=== PATIENT | female | born 1960 | race Caucasian/White ===

== ENCOUNTER 2017-07-19 06:58 | Day surgery (SDC) | payer OTHER ==
[2017-07-19] MEDS ORDERED: MIDAZOLAM 2 MG/2 ML VIAL IVP ONE (08:01)
--- NOTE | 2017-07-19 08:01 | PDANEPAE ---
ANE History of Present Illness hysterscopy, morcellation, Novasure ANE Past Medical History - Cardiovascular History Hx Hypertension: No Hx Arrhythmias: No Hx Chest Pain: No Hx Coronary Artery / Peripheral Vascular Disease: No Hx CHF / Valvular Disease: No Hx Palpitations: No Cardiovascular History Comment: DVT 2013 CAUSED BY BCPs RLE - NO ANTICOAG TX - Pulmonary History Hx COPD: No Hx Asthma/Reactive Airway Disease: Yes Hx Recent Upper Respiratory Infection: No Hx Oxygen in Use at Home: No Hx Sleep Apnea: No Sleep Apnea Screening Result - Last Documented: Negative Pulmonary History Comment: EXERCISE INDUCED ALLERGIES & CATS - Neurologic History Hx Cerebrovascular Accident: No Hx Seizures: No Hx Dementia: No Neurologic History Comment: MIGRAINES ONCE MONTHLY - Endocrine History Hx Diabetes: No - Renal History Hx Renal Disorders: No - Liver History Hx Hepatic Disorders: No - Neurological & Psychiatric Hx Hx Neurological and Psychiatric Disorders: No - Cancer History Hx Cancer: No - Congenital Disorder History Hx Congenital Disorders: No - GI History Hx Gastrointestinal Disorders: No Gastrointestinal History Comment: CELIAC DISEASE - Other Health History Other Health History: LOW BLOOD IGA LEVELS. NEUROPATHIC ITCH - FOLLOWING REACTION TO OVIIDO WRAP FOR DVT R LEG. -RESIDUAL PATCH RLE - -GABAPENTIN RELIEVES SXS - Chronic Pain History Chronic Pain: Yes (FASCIITIS) - Surgical History Prior Surgeries: 2015 HYSTEROSCOPY-FIBROIDS. ACL REPAIR R ANE Review of Systems Review of systems is: negative Review of Systems: - Exercise capacity METS (RN): 4 METS ANE Patient History - Allergies Allergies/Adverse Reactions: No Known Allergies Allergy (Unverified 07/06/17 16:09) - Home Medications Home medications: home medication list seen and reviewed Home Medications: Gabapentin 07/06/17 [Last Taken 07/18/17 17:30] Ibuprofen 07/06/17 [Last Taken 07/05/17] Zyrtec 07/06/17 [Last Taken 07/17/17] - NPO status NPO Since - Liquids (Date): 07/19/17 NPO Since - Liquids (Time): 05:00 - Anes Hx Anes Hx: no prior problems - Smoking Hx Smoking Status: Former smoker - Family Anes Hx Family Anes Hx: none Family Hx Anesthesia Complications: NEG ANE Labs/Vital Signs - Vital Signs Height: 164.47 cm Weight: 78.925 kg ANE Physical Exam - Airway Neck exam: FROM Mallampati Score: Class 3 Mouth exam: normal dental/mouth exam - Pulmonary Pulmonary: no respiratory distress - Cardiovascular Cardiovascular: regular rate and rhythym - ASA Status ASA Status: II ANE Anesthesia Plan Total IV Anesthesia: Yes
[2017-07-19] MEDS ORDERED: LR 1,000 ML IV ONE (08:43)
[2017-07-19] MEDS ORDERED: LIDOCAINE 1% 2 ML INJ ID PRN (08:43)
[2017-07-19] MEDS ORDERED: ONDANSETRON 4 MG/2 ML VIAL ONE (08:45)
[2017-07-19] MEDS ORDERED: LIDOCAINE 2% 100 MG/5 ML SYR ONE (08:45)
[2017-07-19] MEDS ORDERED: fentaNYL 100 MCG/2 ML INJ ONE (08:45)
[2017-07-19] MEDS ORDERED: PROPOFOL 200 MG/20 ML VIAL ONE (08:45)
[2017-07-19] MEDS ORDERED: DEXAMETHASONE 4 MG/ML VIAL ONE (08:45)
--- NOTE | 2017-07-19 08:51 | PDHPUP ---
History & Physical Update H&P update statement: This history and physical update is based on an assessment of the patient which was completed after admission or registration (within 24 hours), but prior to the surgery/procedure.
[2017-07-19] MEDS ORDERED: MEPERIDINE 25 MG/ML SYR IVP PRN (09:21)
[2017-07-19] MEDS ORDERED: fentaNYL 100 MCG/2 ML INJ IVP PRN (09:21)
[2017-07-19] MEDS ORDERED: DEXAMETHASONE 4 MG/ML VIAL IVP PRN (09:21)
[2017-07-19] MEDS ORDERED: ONDANSETRON 4 MG/2 ML VIAL IVP PRN (09:21)
[2017-07-19] MEDS ORDERED: HYDROmorphONE/DILAUDID 1 MG/ML INJ IVP PRN (09:21)
[2017-07-19] MEDS ORDERED: ACETAMINOPHEN 500 MG TAB PO PRN (09:21)
[2017-07-19] MEDS ORDERED: HYDROCODONE/APAP 5/325 TAB PO PRN (09:21)
[2017-07-19] MEDS ORDERED: NALOXONE HCL 0.4 MG/ML INJ IVP PRN (09:21)
[2017-07-19] MEDS ORDERED: PROMETHAZINE HCL 25 MG/ML INJ IVP PRN (09:21)
[2017-07-19] MEDS ORDERED: OXYCODONE/APAP 5/325 TAB PO PRN (09:21)
--- NOTE | 2017-07-19 09:23 | POSTANESTH ---
Post Anesthetic Evaluation Cardiovascular Status: Normal, Stable, Similar to Pre-Op Cond Respiratory Status: Normal, Stable, Similar to Pre-op Cond. Level of Consciousness/Mental Status: Can Participate in Eval, Moderately Sleepy Pain Control: Adequate, Prn Tx Ordered Nausea/Vomiting Control: Adequate, Prn Tx Ordered Complications Possibly Related to Anesthesia: None Noted
[2017-07-19] MEDS ORDERED: KETOROLAC 30 MG/1 ML SDV ONE (09:33)
--- NOTE | 2017-07-19 09:50 | POSTOPPROG ---
Post Op Note Date of Operation: 07/19/17 Surgeon: Haven Devine Anesthesiologist: Dmitriy Quiroz Anesthesia: LMA Pre-op Diagnosis: DUB, fibroid Post-op Diagnosis: same Indication: persistent bleeding Procedure: H/S myomectomy , Novasure Findings: submucosal fibroid Inf/Abcess present in the surg proc area at time of surgery?: No EBL: Minimal
[2017-07-19 10:42] VITALS: TEMP 97.5; O2SAT 96
[2017-07-19 11:02] VITALS: BP 110/73; PULSE 65; RESP 14
--- NOTE | 2017-07-20 00:13 | GOP ---
[f rep st] OPERATIVE REPORT DATE OF OPERATION: 07/19/2017 SURGEON: Haven Devine MD ANESTHESIA: General with LMA. ANESTHESIOLOGIST: Dmitriy Quiroz MD PREOPERATIVE DIAGNOSIS: 1. Dysfunctional uterine bleeding. 2. Submucosal fibroids. 3. History of previous hysteroscopic myomectomy. POSTOPERATIVE DIAGNOSIS: 1. Dysfunctional uterine bleeding. 2. Submucosal fibroids. 3. History of previous hysteroscopic myomectomy. PROCEDURE PERFORMED: Hysteroscopic myomectomy with NovaSure endometrial ablation. FINDINGS: An anterior, fundal fibroid impinging into the endometrium, probably about 1.5 cm, and she has several others on the right lower uterine segment. Normal tubal ostia and normal cervix. ESTIMATED BLOOD LOSS: Minimal. DESCRIPTION OF PROCEDURE: With informed consent signed, patient was taken to the operating room, [facility] under general anesthesia, placed in a low dorsal lithotomy position, prepped and draped in usual fashion. Bladder previously emptied. A speculum placed in the vagina. Tenaculum placed on the ante rior lip of the cervix. Uterus was sounded to 8 cm. The cervix was dilated up to 9.5 mm. Hysterosc ope placed, using normal saline as a filling medium, and findings as noted above. The [facility] [employer] Neph ew Truclear hysteroscopic morcellator placed into the hysteroscope, and reciprocating blade used to r esect the submucosal fibroids. Once it was felt that they were completely removed, the hysteroscope removed and net fluid deficit was 90 cc. The NovaSure endometrial ablation device was placed into th e uterine cavity, depth was 6.5, width was 4.6, integrity test passed. Burn time was only about 20-3 0 seconds. Then, the NovaSure removed and patient placed in supine position, awakened in the operati ng room, taken to recovery room in stable condition. Tolerated the procedure well. INDICATIONS FOR PROCEDURE: Patient is a 56-year-old who has had heavy irregular menstrual cycles. S he has had a hysteroscopic myomectomy at [place] in 2014, and had improvement of periods and then was here as a patient in 2016, complaining of heavy periods. An ultrasound sonohysterogram done August of 2016 showed a submucosal filling defect, likely a fundal submucosal fibroid. The patient was offe red hysteroscopic resection and declined, and then continued to have problematic bleeding. Another u ltrasound was done in May 2017, and the fibroid was considered stable. The patient desires to go ahead with surgical removal again. COMPLICATIONS: None. /[id number]/MODL
== END 2017-07-19 15:41 | disposition home or self-care (01) ==
LOC: FSGY 06:58
PROVIDERS: ATTEND Obstetrics & Gynecology Gynecology
PROC: 0UB97ZZ Excision of Uterus, Via Natural or Artificial Opening (ICD-10-PCS; principal; 2017-07-19 08:30)
PROC: 0U5B8ZZ Destruction of Endometrium, Via Natural or Artificial Opening Endoscopic (ICD-10-PCS; principal; 2017-07-19 08:30)
DX: N93.8 Other specified abnormal uterine and vaginal bleeding (principal); D25.0 Submucous leiomyoma of uterus
CPT/HCPCS: 58145; 58563; C1782; J1100; J1885; J2001; J2250; J2405; J2704; J3010

== ENCOUNTER → 2018-01-27 | Outpatient (CLI) | payer BC | LOC: FIMAGING 14:46 | PROVIDERS: ATTEND Internal Medicine | DX: Z12.31 Encounter for screening mammogram for malignant neoplasm of breast (principal) ==

== ENCOUNTER → 2018-06-26 | Outpatient (CLI) | payer BC ==
[~2018-06-26] MED LIST: GADOBUTROL 10 ML VIAL IVP ONE
== END ==
LOC: FIMAGING 15:07
PROVIDERS: ATTEND Internal Medicine
DX: R22.2 Localized swelling, mass and lump, trunk (principal)
CPT/HCPCS: A9585

== ENCOUNTER 2019-01-17 15:06 | Emergency (ER) | payer BC ==
--- NOTE | 2019-01-17 15:08 | EDPHY ---
H & P Time Seen by Provider: 01/17/19 15:08 HPI/ROS: CHIEF COMPLAINT: Presyncope, fatigue HISTORY OF PRESENT ILLNESS: The patient presents the ED after an episode of presyncope that occurred while standing at work. The patient reportedly felt as if she was going to pass out experience transient disequilibrium. The patient has continued to have intermittent bouts confusion since the event. There is no history of unilateral weakness or numbness. The patient denies any speech difficulties. She has no prior history of stroke or TIA. She denies any headache, neck pain recent fall or cervical manipulation. The patient denies any changes to her regular medications. The patient does have a history of orthostatic hypotension but reports the symptoms today feel different. REVIEW OF SYSTEMS: A comprehensive 10 point review of systems is otherwise negative aside from elements mentioned in the history of present illness. Source: Patient Exam Limitations: No limitations - Medical/Surgical History Hx Diabetes: No - Family History Significant Family History: No pertinent family hx - Social History Smoking Status: Former smoker - Physical Exam Exam: General Appearance: Alert, no acute distress Eyes: Pupils equal and round no pallor or injection ENT, Mouth: Mucous membranes moist Respiratory: There are no retractions, lungs are clear to auscultation Cardiovascular: Regular rate and rhythm Gastrointestinal: Abdomen is soft and nontender, no masses, bowel sounds normal Neurological: A&O, normal motor function, normal sensory exam, normal cranial nerves Skin: Warm and dry, no rashes Musculoskeletal: Neck is supple nontender Extremities: symmetrical, full range of motion Constitutional: Initial Vital Signs Temperature (C) 36.5 C 01/17/19 15:11 Heart Rate 71 01/17/19 15:11 Respiratory Rate 16 01/17/19 15:11 Blood Pressure 133/93 H 01/17/19 15:11 O2 Sat (%) 97 01/17/19 15:11 O2 Delivery Mode Room Air Allergies/Adverse Reactions: No Known Allergies Allergy (Unverified 01/17/19 15:09) Home Medications: Medication Instructions Recorded Gabapentin 07/06/17 Ibuprofen 07/06/17 Zyrtec 07/06/17 Albuterol Sulfate 01/17/19 Prozac 10 MG (*) 01/17/19 Xanax 01/17/19 Medical Decision Making - Diagnostics EKG Interpretation: EKG: Complete interpretation has been separately [facility] the [facility]. Summary impression: Sinus rhythm, rate 69 ED Course/Re-evaluation: Patient presents to the ED with presyncope and fatigue. The patient arrives with stable vital signs. During in the interview the patient did seem to be quite fatigued with difficulty concentrating. She had no focal neurologic deficits noted on exam. The patient was treated with IV fluids in the emergency department. EKG demonstrates no evidence of ischemia. The patient's cardiac enzymes, CBC and serum chemistries are normal. The patient underwent a cardiac echo which was reviewed with Dr. Alcantar and demonstrates no acute abnormality. While in the department the patient was up and ambulatory after receiving IV fluids. She has had resolution of her symptoms. I do believe she likely is experiencing presyncope from dehydration. Her symptoms have resolved with IV fluid rehydration. She has no complaints of headache. 5:45 p.m.: The patient will be discharged home as she is asymptomatic at this point time. She is given customary aftercare instructions and return precautions. Differential Diagnosis: Differential diagnosis considered includes dehydration, metabolic abnormality, cardiac arrhythmia, acute coronary syndrome, pulmonary embolism, anemia - Data Points Laboratory Results: Laboratory Results 01/17/19 15:23 01/17/19 15:23 01/17/19 01/17/19 01/17/19 15:33 15:23 15:23 WBC RBC Hgb Hct MCV MCH MCHC RDW Plt Count MPV Neut % (Auto) Lymph % (Auto) Piute % (Auto) Eos % (Auto) Baso % (Auto) Nucleat RBC Rel Count Absolute Neuts (auto) Absolute Lymphs (auto) Absolute Monos (auto) Absolute Eos (auto) Absolute Basos (auto) Absolute Nucleated RBC Immature Gran % Immature Gran # D-Dimer 0.38 ug/mLFEU ug/mLFEU (0.00-0.50) Sodium 136 mEq/L mEq/L (135-145) Potassium 4.3 mEq/L mEq/L (3.5-5.2) Chloride 107 mEq/L mEq/L (97-110) Carbon Dioxide 20 mEq/l L mEq/l (22-31) Anion Gap 9 mEq/L mEq/L (6-14) BUN 10 mg/dL mg/dL (7-23) Creatinine 0.7 mg/dL mg/dL (0.6-1.0) Estimated GFR > 60 Glucose 95 mg/dL mg/dL (70-100) Calcium 9.4 mg/dL mg/dL (8.5-10.4) Creatine Kinase 52 IU/L IU/L (0-156) POC Troponin I 0.00 ng/mL ng/mL (0.00-0.08) 01/17/19 15:23 WBC 6.16 10^3/uL 10^3/uL (3.80-9.50) RBC 4.76 10^6/uL 10^6/uL (4.18-5.33) Hgb 14.7 g/dL g/dL (12.6-16.3) Hct 42.7 % % (38.0-47.0) MCV 89.7 fL fL (81.5-99.8) MCH 30.9 pg pg (27.9-34.1) MCHC 34.4 g/dL g/dL (32.4-36.7) RDW 14.0 % % (11.5-15.2) Plt Count 156 10^3/uL 10^3/uL (150-400) MPV 10.3 fL fL (8.7-11.7) Neut % (Auto) 54.9 % % (39.3-74.2) Lymph % (Auto) 33.1 % % (15.0-45.0) Piute % (Auto) 10.2 % % (4.5-13.0) Eos % (Auto) 1.0 % % (0.6-7.6) Baso % (Auto) 0.5 % % (0.3-1.7) Nucleat RBC Rel Count 0.0 % % (0.0-0.2) Absolute Neuts (auto) 3.38 10^3/uL 10^3/uL (1.70-6.50) Absolute Lymphs (auto) 2.04 10^3/uL 10^3/uL (1.00-3.00) Absolute Monos (auto) 0.63 10^3/uL 10^3/uL (0.30-0.80) Absolute Eos (auto) 0.06 10^3/uL 10^3/uL (0.03-0.40) Absolute Basos (auto) 0.03 10^3/uL 10^3/uL (0.02-0.10) Absolute Nucleated RBC 0.00 10^3/uL 10^3/uL (0-0.01) Immature Gran % 0.3 % % (0.0-1.1) Immature Gran # 0.02 10^3/uL 10^3/uL (0.00-0.10) D-Dimer Sodium Potassium Chloride Carbon Dioxide Anion Gap BUN Creatinine Estimated GFR Glucose Calcium Creatine Kinase POC Troponin I Medications Given: Discontinued Medications Sodium Chloride (Ns) 1,000 mls @ 0 mls/hr IV EDNOW ONE; Wide Open PRN Reason: Protocol Stop: 01/17/19 15:28 Last Admin: 01/17/19 15:49 Dose: 1,000 mls Sodium Chloride (Ns) 1,000 mls @ 0 mls/hr IV EDNOW ONE; Wide Open PRN Reason: Protocol Stop: 01/17/19 16:24 Last Admin: 01/17/19 17:00 Dose: 1,000 mls Point of Care Test Results: Chemistry 01/17/19 15:33 POC Troponin I 0.00 ng/mL ng/mL (0.00-0.08) Departure - Departure Disposition: Home, Routine, Self-Care Clinical Impression: Vasovagal near syncope Condition: Good Instructions: Syncope (ED) Additional Instructions: 1. Please try increase your fluid intake as mild dehydration may have contributed to your symptoms today. 2. Return to the ED for severe headache, numbness, weakness, difficulty with speech or walking. 3. Please follow-up with your primary care provider as scheduled. Referrals: Patient,NotPresent [Unknown] - As per Instructions
[2019-01-17] MEDS ORDERED: NS 1,000 ML IV ONE ×2 (15:27→16:23)
--- NOTE | 2019-01-17 15:31 | CPEKG ---
Test Reason : OPEN Blood Pressure : / mmHG Vent. Rate : 069 BPM Atrial Rate : 068 BPM P-R Int : 151 ms QRS Dur : 102 ms QT Int : 424 ms P-R-T Axes : 027 056 008 degrees QTc Int : 455 ms Sinus rhythm Low voltage, precordial leads Confirmed by Gian Bunch ([id number]) on 01/17/2019 3:30:29 PM Referred By: Gian Bunch Confirmed By:Gian Bunch
[2019-01-17 15:36] LABS: PLATELET COUNT 156 10^3/uL (150-400)
[2019-01-17 15:50] LABS: CREATINE KINASE 52 IU/L (0-156)
--- NOTE | 2019-01-17 16:36 | ECHO ---
[email or web address] [address] [address] Main: [phone] Echocardiography Examination Transthoracic Name: VALERIE STERN MR#: [id number] Study Date: 01/17/2019 Study Time: 03:44 PM Date of : 1960 Age: 58 year(s) Height: 162.6 cm (64 in.) Weight: 77.11 kg (170 lb.) BSA: 1.83 m2 Gender: Female Examination: Echo Contrast: Image Quality: Adequate Rhythm: Heart Rate: BP: / Indication: Presyncope Procedure Staff Referring Physician: Pastry Cook: Altagracia Crandall RDCS Reading Physician: Isiah Alcantar MD Requesting Provider: Ordering Physician: Gian Bunch Indication: Presyncope Measurements Chambers AV/MV Label Value Normal Value Label Value Normal Value LVDd, 2D 4.5 cm (3.9cm - 5.3cm) AV PGmax 7 mmHg LVDs, 2D 2.7 cm (2.1cm - 4cm) AV PGmean 3 mmHg IVSd, 2D 0.8 cm (0.6cm - 1.1cm) AV Vmax 1.28 m/s LVPWd, 2D 0.6 cm MV E Vmax 0.68 m/s LVEF, BP 70 % (55% - 70%) MV A Vmax 0.61 m/s LVEF, 2D 71 % (54% - 74%) MV E/A 1.11 LADs, 2D 3.6 cm (2.7cm - 3.8cm) MV E/E' lateral 8.9 Additional Vessels MV E/E' septal 12.4 (0.5 - 1.7) Label Value Normal Value MV E' septal 0.05 m/s AoAsc 2.9 cm MV E' lateral 0.08 m/s AoRoot, MM 3.3 cm (2.2cm - 3.7cm) MV E/E' mean 10.46 MV E' mean 0.06 m/s TV/PV Label Value Normal Value RA Pressure 5 mmHg RVSP 28 mmHg TR Pmax 23 mmHg TR Vmax 2.38 m/s Patient: VALERIE BUSHN: [id number] Study Date: 01/17/2019 Page 1 of 3 03:44 PM Conclusions Left Ventricle: Left ventricle is normal in size. The ejection fraction, measured by Simpsons method, is 70 %. Left ventricle wall thickness is normal. There are no regional wall motion abnormalities. Left ventricular diastolic function parameters are normal. Right Ventricle: Normal size right ventricle. Left Atrium: The left atrium is normal in size. Mitral Valve: Mitral valve is normal in appearance. Aortic Valve: Aortic leaflets exhibit normal cuspal separation. Tricuspid Valve: Mild tricuspid regurgitation. Right Ventricular systolic pressure is measured at 28 mmHg. Pericardium: No pericardial effusion. Findings Left Ventricle: Left ventricle is normal in size. Normal global systolic left ventricular function. The ejection fraction, measured by Simpsons method, is 70 %. EF range is estimated at 60 % - 65 %. Left ventricle wall thickness is normal. There are no regional wall motion abnormalities. Left ventricular diastolic function parameters are normal. IVS: The septum is intact. Right Ventricle: Normal size right ventricle. Right ventricular systolic function is normal. Left Atrium: The left atrium is normal in size. IAS: Atrial septal bowing from left to right. Right Atrium: The right atrium is borderline dilated. Mitral Valve: Mitral valve is normal in appearance. No mitral valve stenosis. Aortic Valve: Aortic leaflets exhibit normal cuspal separation. No aortic valve regurgitation. There is no aortic stenosis. Tricuspid Valve: Tricuspid valve leaflets are normal in appearance and function. Mild tricuspid regurgitation. No tricuspid valve stenosis. Right Ventricular systolic pressure is measured at 28 mmHg. Pulmonary artery pressure normal. Pulmonic Valve: Pulmonic leaflets exhibit normal cuspal separation. Trivial pulmonic valve regurgitation is present. There is no pulmonic valve stenosis. Patient: VALERIE STERN Study Date: 01/17/2019 Page 2 of 3 03:44 PM Aorta: The aorta is normal. The aortic root size in M-mode measures 3.3 cm. The ascending aorta measures 2.9 cm. Aorta Measurements AoRoot, MM is 3.3 cm. Pericardium: No pericardial effusion. No pleural effusion present. Exam Details Procedure Ordered: Echo Procedure Status: Routine study Image Quality: Adequate Facility Location: Cardiac Echo 1 (No Signature Object) Patient: VALERIE STERN Study Date: 01/17/2019 Page 3 of 3 03:44 PM [id number]
[2019-01-17 19:25] VITALS: BP 122/81
== END 2019-01-17 19:29 | disposition home or self-care (01) ==
LOC: EDUNIT#
DX: R55 Syncope and collapse (principal); Z87.891 Personal history of nicotine dependence
CPT/HCPCS: 70551-PN; 84484-ER

== ENCOUNTER → 2019-02-12 | Outpatient (CLI) | payer BC | LOC: FCPNEURO 08:11 ==